=== PATIENT | female | born 1995 | race Caucasian/White ===

== ENCOUNTER → 2023-02-02 10:25 | Outpatient (BNVA) | payer MEDICAID, SELFPAY | PROVIDERS: Visit Provider Nurse Practitioner Family | DX: R50.9 Fever, unspecified (principal); U07.1 COVID-19; B34.9 Viral infection, unspecified | CPT/HCPCS: 87426 ==

== ENCOUNTER 2023-07-24 11:02 | Emergency (ER) | payer MEDICAID, SELFPAY ==
[2023-07-24 11:13] VITALS: BP 128/84; PULSE 121; RESP 20; TEMP 36.7; O2SAT 92; BMI 23.3
--- NOTE | 2023-07-24 12:24 | PC.PHAR ---
pt states she takes care of her own medications-pt states not taking anything otc-pt states she stop taking her venlafaxine 2 weeks ago ext shows last filled 06/26/23 30d/s
[2023-07-24 12:34] VITALS: BP 131/93; PULSE 113; O2SAT 97
[2023-07-24] MEDS: sodium chloride 0.9% 1,000 ML 999 ML IV (12:40)
--- NOTE | 2023-07-24 12:45 | ED_ITS ---
HPI - General Adult General: Chief complaint: General Medical Stated complaint: medication withdrawal Time Seen by Provider: 07/24/23 12:20 Source: patient Mode of arrival: ambulatory History of Present Illness: 28-year-old female presents emergency room she feels she is withdrawing from venlafaxine she was on 37 and half milligrams had side effects or psychiatrist advised her to stop it. She has not taken any in 2 weeks he says she has been nauseous dizzy lightheaded has had several episodes of vomiting she had googled venlafaxine and found that all of the symptoms she is having could be attributed to her stopping the medication. She does use medical marijuana on a daily basis as well. Patient reports she has had a couple episodes of mildly blood-streaked vomitus. Onset (ago): day(s) Severity: mild Relieving factors: none Exacerbating factors: none Associated symptoms: Deny chest pain, confusion, cough, diaphoresis, decreased appetite, dyspnea, fevers/chills, headache(s), malaise, nausea, rash, palpitations, seizures, short of breath, syncope, vomiting or weakness Review of Systems Const: Denies: malaise or diaphoresis ENMT: Denies: throat pain, ear or mastoid pain, nasal discharge or nasal congestion Card: Denies: chest pain, palpitations or syncope Resp: Denies: dyspnea GI: Denies: nausea or vomiting : Denies: flank pain, difficulty voiding, dysuria, urinary frequency or urinary urgency Skin/Breast: Denies: rash Neuro: Denies: headache(s) or confusion PFS ED PFSH: Medical History Psychiatric care Physical Exam Const: GENERAL APPEARANCE: cooperative and comfortable ORIENTATION/CONSCIOUSNESS: Yes awake, Yes oriented to person, Yes oriented to place and Yes oriented to time HENMT: COMMON NORMALS: normocephalic, atraumatic and hearing grossly normal bilaterally HEAD & SCALP: normocephalic and atraumatic Resp: COMMON NORMALS: normal respiratory effort, No retractions, No use of accessory muscles and clear to auscultation bilaterally AUSCULTATION: clear to auscultation bilaterally Cardio: COMMON NORMALS: regular rate, regular rhythm and No murmurs present ( Cardio) RATE: regular rate RHYTHM: regular rhythm GI: COMMON NORMALS: Soft to palpation and No hepatosplenomegaly present AUSCULTATION: Yes normoactive bowel sounds PALPATION: Yes Soft to palpation, No Tenderness to palpation present (GI), No Guarding due to palpation present (GI) and Yes No hepatosplenomegaly present Extremity: COMMON NORMALS: normal to inspection, capillary refill normal, no clubbing, cyanosis or edema, no calf tenderness and no pedal edema Neuro: SENSORIUM/ORIENTATION: Yes oriented to person, Yes oriented to place and Yes oriented to time Skin: COMMON NORMALS: no rashes or lesions noted GENERAL SKIN EXAM: no rashes or lesions noted Course Vital Signs: Vital signs: Vital Signs Temperature 98.0 F 07/24/23 11:13 Pulse Rate 86 07/24/23 15:46 Respiratory Rate 20 H 07/24/23 11:13 Blood Pressure 139/86 07/24/23 15:46 Pulse Oximetry 99 07/24/23 15:46 Oxygen Delivery Me thod Room Air 07/24/23 12:34 [facility] - General Adult Medical Decision Making Elevated transaminases T. bili is normal alk phos is also elevated. Acute hepatitis panel negative. Gallbladder ultrasound done as well no significant findings. Normal COVID-negative patient does have an incidental cystitis for which we will start oral antibiotics. Recommend clear liquid diet advance as tolerated follow-up for repeat liver enzymes in the next few weeks return to primary care doctor has any worsening symptoms. The level of venlafaxine she was on the timeframe when she has been off of it preclude this as a cause at this time. Gallbladder normal common bile duct mild hepatomegaly otherwise unremarkable. This could be from a simple gastroenteritis. Lab Data 07/24/23 12:39 07/24/23 12:39 Laboratory Results WBC 19.81 10^3/uL (3.29-11.43) H 07/24/23 12:39 RBC 4.98 10^6/uL (3.85-5.65) 07/24/23 12:39 Hgb 14.90 g/dL (11.27-16.99) 07/24/23 12:39 Hct 44.4 % (36-47) 07/24/23 12:39 MCV 89.2 fl (85-98) 07/24/23 12:39 MCH 29.9 pg (27-33) 07/24/23 12:39 MCHC 33.6 g/dL (30-55) 07/24/23 12:39 RDW 13.2 % (12.1-15.1) 07/24/23 12:39 Plt Count 229 10^3/cmm (157-399) 07/24/23 12:39 MPV 9.3 fL (7.4-10.4) 07/24/23 12:39 Neut % (Auto) 88.8 % 07/24/23 12:39 Lymph % (Auto) 3.4 % 07/24/23 12:39 [place] % (Auto) 6.8 % 07/24/23 12:39 Eos % (Auto) 0.2 % 07/24/23 12:39 Baso % (Auto) 0.3 % 07/24/23 12:39 Neut # (Auto) 17.60 10^3/uL (1.8-7.7) H 07/24/23 12:39 Lymph # (Auto) 0.7 10^3/uL (0.8-4.8) L 07/24/23 12:39 [place] # (Auto) 1.4 10^3/uL (0.2-0.9) H 07/24/23 12:39 Eos # (Auto) 0.0 10^3/uL (0.0-0.8) 07/24/23 12:39 Baso # (Auto) 0.1 10^3/uL (0.0-0.1) 07/24/23 12:39 Nucleated RBC % (auto) 0 % 07/24/23 12:39 Nucleated RBCs # 0.0 /100WBC 07/24/23 12:39 Sodium 132 mmol/L (136-145) L 07/24/23 12:39 Potassium 4.0 mmol/L (3.5-5.1) 07/24/23 12:39 Chloride 97 mmol/L (98-107) L 07/24/23 12:39 Carbon Dioxide 22 mmol/L (22-29) 07/24/23 12:39 Anion Gap 17.0 (5-19) 07/24/23 12:39 BUN 8 mg/dL (6-20) 07/24/23 12:39 Creatinine 0.5 mg/dL (0.5-0.9) 07/24/23 12:39 GFR Calculation 148.0 mL/min (90-130) H 07/24/23 12:39 Glucose 99 mg/dL (65-115) 07/24/23 12:39 Calculated Osmolality 272 mOsm/kg (285-295) L 07/24/23 12:39 Calcium 9.6 mg/dL (8.5-10.5) 07/24/23 12:39 Total Bilirubin 1.1 mg/dL (0.15-1.2) 07/24/23 12:39 AST 157 U/L (0-32) H 07/24/23 12:39 ALT 600 U/L (0-33) H 07/24/23 12:39 Alkaline Phosphatase 167 U/L (35-105) H 07/24/23 12:39 Total Protein 8.1 g/dL (6.6-8.7) 07/24/23 12:39 Albumin 4.3 g/dL (3.5-5.2) 07/24/23 12:39 Globulin 3.8 g/dL (1.3-4.6) 07/24/23 12:39 Lipase 24 U/L (13-60) 07/24/23 12:39 HCG, Qual Negative (Negative) 07/24/23 12:39 Urine Color Yellow (Yellow) 07/24/23 13:26 Urine Appearance Cloudy (CLEAR) A 07/24/23 13:26 Urine pH 8 (5-7) H 07/24/23 13:26 Ur Specific [place] 1.005 (1.005-1.030) 07/24/23 13:26 Urine Protein Neg (Negative) 07/24/23 13:26 Urine Glucose (UA) Norm (Normal) 07/24/23 13:26 Urine Ketones Negative (Negative) 07/24/23 13:26 Urine Blood Neg (Negative) 07/24/23 13:26 Urine Nitrate Positive (Negative) H 07/24/23 13:26 Urine Bilirubin Neg (Negative) 07/24/23 13:26 Prot Sulfosalicylic Acd Negative (Negative) 07/24/23 13:26 Urine Urobilinogen Norm mg/dL (Negative) 07/24/23 13:26 Ur Leukocyte Esterase 2+ (Negative) H 07/24/23 13:26 Urine RBC 0-4 /hpf (0-2) H 07/24/23 13:26 Urine WBC 10-15 /hpf (0-5) H 07/24/23 13:26 Ur Squamous Epith Cells 0-4 /hpf (0-5) H 07/24/23 13:26 Amorphous Sediment Not Reportable 07/24/23 13:26 Urine Bacteria 4+ /hpf (NONE) H 07/24/23 13:26 Hyaline Casts 0-4 /lpf H 07/24/23 13:26 Urine Opiates Screen Negative ng/mL (Negative) 07/24/23 13:26 Ur Barbiturates Screen Negative ng/mL (Negative) 07/24/23 13:26 Ur Phencyclidine Scrn Negative ng/mL (Negative) 07/24/23 13:26 Ur Amphetamines Screen Negative ng/mL (Negative) 07/24/23 13:26 U Benzodiazepines Scrn Negative ng/mL (Negative) 07/24/23 13:26 Urine Cocaine Screen Negative ng/mL (Negative) 07/24/23 13:26 U Marijuana (THC) Screen Positive ng/mL (Negative) H 07/24/23 13:26 Lyme Ab (Western Blot) <0.90 index 07/24/23 15:41 Coronavirus 229E (PCR) Not detected (NOT DETECT) 07/24/23 15:41 Hepatitis A IgM Ab Non-reactive (Nonreactive) 07/24/23 12:39 Hep Bs Antigen Non-reactive (Nonreactive) 07/24/23 12:39 Hep B Core IgM Ab Non-reactive (Nonreactive) 07/24/23 12:39 Hepatitis C Antibody Non-reactive (Nonreactive) 07/24/23 12:39 SARS-CoV-2 (PCR) Not detected (NOT DETECT) 07/24/23 15:41 Discharge Plan Discharge Patient Disposition: Home Clinical Impression: Elevated transaminase measurement, Nausea & vomiting, Cystitis, Anxiety Condition: Stable Prescriptions: New promethazine 25 mg tablet 25 mg PO Q6H PRN (Reason: nausea and vomiting) Qty: 20 0RF omeprazole 40 mg capsule,delayed release(DR/EC) 40 mg PO BID Qty: 60 0RF Macrobid 100 mg capsule 100 mg PO BID 7 Days Qty: 14 0RF Rx Instructions: must administer with a meal/food hydroxyzine HCl 25 mg tablet 25 mg PO Q8H PRN (Reason: anxiety) Qty: 7 0RF No Action venlafaxine 37.5 mg capsule,extended release 24hr See Rx Instructions .ROUTE .COMPLEX Qty: 60 1RF Rx Instructions: Take 1 capsule p.o. every a.m. x 8 days then take 2 capsules p.o. every day if tolerated. Mirena 21 mcg/24 hours (8 yrs) 52 mg Intrauterine Device See Rx Instructions .ROUTE .COMPLEX Rx Instructions: intrauterinely as directed trazodone 50 mg tablet 50 mg PO BEDTIME Discharge Orders: Discharge ED (Routine); Ordered 07/24/23 Ordered By: Alden Ball Referrals: Nely Shay FNP [Primary Care Provider] - Discharge Diet: Usual diet Discharge Activity: Resume usual activity Patient Instructions: Opioid Safety, Pain Management Activity Restrictions/Additional Instructions: You were seen today for complaints of nausea and vomiting. Recommend that he start omeprazole 40 mg twice daily. Also recommend use promethazine as needed clear liquid diet advance as tolerated follow-up with your primary care doctor to recheck your liver enzymes which are significantly elevated. If any worsening or change symptoms return. Coding Level of Care Code ED Hand Collator for Andrea Lindo
[2023-07-24 12:57] LABS: Basophils # 0.1 10^3/uL (0.0-0.1); Basophils % 0.3 %; Eosinophils % 0.2 %; Hematocrit 44.4 % (36-47); Lymphocytes # 0.7 10^3/uL (0.8-4.8); Lymphocytes % 3.4 %; Mean Corpuscular HGB Conc 33.6 g/dL (30-55); Mean Corpuscular Hemoglobin 29.9 pg (27-33); Mean Corpuscular Volume 89.2 fl (85-98); Mean Platelet Volume 9.3 fL (7.4-10.4); Monocytes # 1.4 10^3/uL (0.2-0.9); Monocytes % 6.8 %; Neutrophils % 88.8 %; Nucleated Red Blood Cells % 0 %; Platelet Count 229 10^3/cmm (157-399); Red Blood Count 4.98 10^6/uL (3.85-5.65); Red Cell Distribution Width 13.2 % (12.1-15.1); White Blood Count 19.81 10^3/uL (3.29-11.43)
[2023-07-24 13:20] LABS: Alanine Aminotransferase 600 U/L (0-33); Albumin Level 4.3 g/dL (3.5-5.2); Alkaline Phosphatase 167 U/L (35-105); Aspartate Amino Transferase 157 U/L (0-32); Blood Urea Nitrogen 8 mg/dL (6-20); Calcium 9.6 mg/dL (8.5-10.5); Carbon Dioxide 22 mmol/L (22-29); Chloride 97 mmol/L (98-107); Globulin 3.8 g/dL (1.3-4.6); Glucose 99 mg/dL (65-115); Osmolality Calculated 272 mOsm/kg (285-295); Sodium 132 mmol/L (136-145); Total Bilirubin 1.1 mg/dL (0.15-1.2); Total Protein 8.1 g/dL (6.6-8.7)
[2023-07-24 13:26] LABS: HCG, Serum Qual Negative (Negative)
[2023-07-24 13:35] LABS: Lipase 24 U/L (13-60)
[2023-07-24 13:36] LABS: Urine Appearance Cloudy (CLEAR); Urine Color Yellow (Yellow)
[2023-07-24 13:37] LABS: Add Urine Microscopic? YES; Bilirubin Urine Neg (Negative); Blood Urine Neg (Negative); Glucose Urine UA Norm (Normal); Ketones Urine Negative (Negative); Leukocyte Esterase Urine 2+ (Negative); Nitrate Urine Positive (Negative); Protein Urine Neg (Negative); Specific Gravity, Urine 1.005 (1.005-1.030); Urobilinogen Urine Norm (Negative); pH Urine 8 (5-7)
[2023-07-24 13:38] LABS: Sulfosalicylic Acid Urine Negative (Negative)
[2023-07-24 13:39] LABS: Add Urine Culture? Yes; Bacteria Urine 4+ /hpf; Hyaline Casts Urine 0-4 /lpf; RBC Urine 0-4 /hpf (0-2); Squamous Epithelial Cell Urine 0-4 /hpf (0-5)
[2023-07-24 13:41] LABS: Amphetamines Screen Urine Negative (Negative); Barbiturates Screen Urine Negative (Negative); Benzodiazepines Screen Urine Negative (Negative); Cocaine Screen Urine Negative (Negative); Opiate Screen Urine Negative (Negative); PCP Screen Urine Negative (Negative); THC Screen Urine Positive (Negative)
--- NOTE | 2023-07-24 14:18 | US_ITS ---
WS: [id number] ULTRASOUND ABDOMEN LIMITED CLINICAL INFORMATION: elevated LFTs COMPARISON: None. FINDINGS: Liver Size: Mild hepatomegaly Craniocaudal length: 16.5 cm. Echogenicity: Normal. Surface nodularity: None. Mass (size and location): None. Bile ducts Intrahepatic ducts: Normal. Common bile duct diameter: 0.3 cm. Gallbladder Normal. Gallstones: None. Gallbladder sludge: None. Gallbladder wall thickening: None. Pericholecystic fluid: None. Sonographic Mccoy sign: Absent. Pancreas Normal as visualized. Right kidney: Normal. Hydronephrosis: None. Size: 10.6 cm x 4.6 cm x 4.4 cm. Abdominal aorta and IVC Visualized portions are normal. Ascites: None. IMPRESSION: 1. Normal gallbladder. 2. Mild hepatomegaly. 3. Normal common bile duct.
[2023-07-24 14:50] LABS: Hepatitis A Antibody IgM Non-Reactive (Nonreactive); Hepatitis B Core IgM Non-Reactive (Nonreactive); Hepatitis B Surface Antigen Non-Reactive (Nonreactive); Hepatitis C Virus Antibody Non-Reactive (Nonreactive)
[2023-07-24] MEDS: LORazepam 2 mg Tablet PO (15:37)
[2023-07-24 15:46] VITALS: BP 139/86; PULSE 86; O2SAT 99
[2023-07-24 17:33] LABS: Adenovirus Not Detected (NOT DETECT); Chlamydia Pneumoniae Not Detected (NOT DETECT); Coronavirus 229E,HKU1,NL63,OC4 Not Detected (NOT DETECT); Human Metapneumovirus Not Detected (NOT DETECT); Human Rhinovirus/Enterovirus Not Detected (NOT DETECT); Influenza A Not Detected (NOT DETECT); Influenza A H1 Not Detected (NOT DETECT); Influenza A H1-2009 Not Detected (NOT DETECT); Influenza A H3 Not Detected (NOT DETECT); Influenza B Not Detected (NOT DETECT); Mycoplasma Pneumoniae Not Detected (NOT DETECT); Parainfluenza Virus Type 1 Not Detected (NOT DETECT); Parainfluenza Virus Type 2 Not Detected (NOT DETECT); Parainfluenza Virus Type 3 Not Detected (NOT DETECT); Parainfluenza Virus Type 4 Not Detected (NOT DETECT); Respiratory Syncytial Virus A Not Detected (NOT DETECT); Respiratory Syncytial Virus B Not Detected (NOT DETECT); SARS-COV-2 Not Detected (NOT DETECT)
[2023-07-25 14:30] LABS: Lyme AB Screen <0.90 index
[2023-07-29 17:19] LABS: E. Chaffeensis AB IGG <1:64; E. Chaffeensis AB IGM <1:20
[2023-07-31 17:15] LABS: RMSF IGG NOT DETECTED; RMSF IGM NOT DETECTED
== END 2023-07-24 16:28 | disposition home or self-care (01) ==
PROVIDERS: Emergency Provider Family Medicine; PCP Nurse Practitioner Family
DX: N30.90 Cystitis, unspecified without hematuria (principal); R11.2 Nausea with vomiting, unspecified; F41.9 Anxiety disorder, unspecified; R74.01 Elevation of levels of liver transaminase levels; Z20.822 Contact with and (suspected) exposure to COVID-19
CPT/HCPCS: 36415; 76705; 80053; 80074; 80306; 81001; 83690; 84703; 85025; 86618; 86666; 86757; 87077; 87086; 87186; 87635; 96360; 99284; J7030

== ENCOUNTER → 2023-10-21 10:00 | Outpatient (BNVA) | payer MEDICAID, SELFPAY | PROVIDERS: PCP Nurse Practitioner Family; Visit Provider Nurse Practitioner Women's Health | DX: Z12.4 Encounter for screening for malignant neoplasm of cervix (principal); N73.0 Acute parametritis and pelvic cellulitis; N76.0 Acute vaginitis; B96.89 Other specified bacterial agents as the cause of diseases classified elsewhere | CPT/HCPCS: 87624 ==

== ENCOUNTER → 2023-11-07 11:08 | Outpatient (BNVA) | payer MEDICAID, SELFPAY | PROVIDERS: PCP Nurse Practitioner Family; Visit Provider Nurse Practitioner Women's Health | DX: Z30.430 Encounter for insertion of intrauterine contraceptive device (principal) | CPT/HCPCS: 76830 ==

== ENCOUNTER → 2023-12-18 11:00 | Outpatient (BNVA) | payer MEDICAID, SELFPAY | PROVIDERS: PCP Nurse Practitioner Family; Visit Provider Obstetrics & Gynecology | DX: Z01.818 Encounter for other preprocedural examination (principal); R87.619 Unspecified abnormal cytological findings in specimens from cervix uteri | CPT/HCPCS: 81025; 88305 ==

== ENCOUNTER 2024-01-16 06:28 | Day surgery (SDC) | payer MEDICAID, SELFPAY ==
[2024-01-16] VITALS (9 sets, daily range): BP systolic 105–131; BP diastolic 61–88; PULSE 70–87; RESP 14–18; TEMP 36.2–36.6; O2SAT 94–99; BMI 21.9
--- NOTE | 2024-01-16 00:23 | W.PM.OPSFHP ---
Same Day Surgery H&P Indication for Procedure/HPI DATE OF PROCEDURE: January 16, 2024 CHIEF COMPLAINT/INDICATIONFOR SURGICAL PROCEDURE: abnormal pap PREOP DIAGNOSIS: abnormal pap PLANNED PROCEDURE: Operation Date: 01/16/24 08:10 Proposed Procedures p [LEEP, loop electrosurgical excision procedure [id number], R87.619,Z30.9(Not Applicable) - Saw Villagomez MD s Removal Of Interuterine Device(Not Applicable) - Saw Villagomez MD 28 y.o. A1 With abnormal pap Pap 12 ASCUS, + HPV Now scheduled for LEEP cervical excision Has mirena IUD in place since March 2019 May need to replace mirena IUD with a new mirena IUD Medications/Allergies* Home Medications Medication Instructions Recorded Confirmed Type levonorgestrel 21 mcg/24 hours (8 See Rx Instructions .Route .COMPLEX 07/24/23 01/15/24 History yrs) 52 mg intrauterine device (Mirena) Allergies/Adverse Reactions Allergy/AdvReac Type Severity Reaction Status Date / Time doxycycline Allergy facial Verified 12/25/23 12:00 swelling kiwi Allergy throat Uncoded 12/25/23 12:00 swelling Pertinent History/Comorbid Conditions* Medical History (Updated 12/08/23 @ 22:58 by Saw Villagomez MD) Psychiatric care Family History (Updated 11/13/23 @ 08:11 by Vicki Spann CMA) Denies family history of Ovarian cancer Diabetes Heart disease Breast cancer Hypertension Uterine cancer Thyroid disease Stroke Pertinent Exam Findings alert, oriented x 3, clear to auscultation bilaterally and regular rate & rhythm Recommendations Surgery/Procedure today Coding Level of Care Code Acute Code for Chg Fwd Time Spent (min) 20
[2024-01-16 06:42] LABS: OR HCG Qualitative Urine Negative (Negative)
[2024-01-16] MEDS: sodium chloride 0.9% 1,000 ML 30 ML IV (07:18)
--- NOTE | 2024-01-16 07:41 | ANES.PREANE2 ---
Pre-Anesthetic Assessment Height/Weight: Height 1.7 m Weight 63.503 kg Temp Pulse Resp BP Pulse Ox O2 Del Method 97.1 F L 86 16 129/84 97 Room Air 01/16/24 07:05 01/16/24 07:05 01/16/24 07:05 01/16/24 07:05 01/16/24 07:05 01/16/24 07:05 Preop Diagnosis: abnormal pap Operation Date: 01/16/24 08:10 Proposed Procedures p [LEEP, loop electrosurgical excision procedure [id number], R87.619,Z30.9(Not Applicable) - Saw Villagomez MD s Removal Of Interuterine Device(Not Applicable) - Saw Villagomez MD Familial anesthetic complications: none Was Beta Severo taken within 24 hours: N/A Was Clonidine taken within 24 hours: N/A Last intake: Intake Last Liquid Date 01/16/24 Last Liquid Time 06:00 Last Solid Date 01/15/24 Last Solid Time 19:30 Social No alcohol and No tobacco Exam alert, oriented x 3, clear to auscultation bilaterally and regular rate & rhythm Airway Submandibular: within normal limits Cervical ROM: within normal limits Mallampati: Class I Dentition: false GI Gastroesophageal Reflux Disease Anesthetic Plan ASA status: 2 Anesthesia: General Medications/Allergies Home Medications Medication Instructions Recorded Confirmed Last Taken Type levonorgestrel 21 mcg/24 hours (8 See Rx Instructions .Route .COMPLEX 07/24/23 01/15/24 01/15/24 History yrs) 52 mg intrauterine device (Mirena) omeprazole 40 mg capsule,delayed 40 mg PO BID #60 caps 07/24/23 01/15/24 01/15/24 Rx release Allergies Allergy/AdvReac Type Severity Reaction Status Date / Time doxycycline Allergy facial Verified 01/16/24 06:57 swelling kiwi Allergy throat Uncoded 01/16/24 06:57 swelling Current Medications Generic Name Dose Route Start Last Admin Trade Name Freq PRN Reason Stop Dose Admin Sodium Chloride 1,000 mls @ 30 mls/hr 01/16/24 07:00 01/16/24 07:18 Sodium Chloride 0.9% IV 01/17/24 06:59 30 mls/hr .Q24H RABIA Administration PFSH Anesthesia Medical History Psychiatric care Family History Denies family history of Ovarian cancer Diabetes Heart disease Breast cancer Hypertension Uterine cancer Thyroid disease Stroke Female Reproductive History Date of last menstrual period: 01/07/24 Data Anesthesia Cardiac Studies: No Data to Display
--- NOTE | 2024-01-16 07:56 | W.PM.OPSUD ---
Surgery/Procedure H&P Update DATE OF PROCEDURE: January 16, 2024 DATE H&P PERFORMED: 01/16/24 H&P UPDATE INFORMATION: I have reviewed H&P completed within last 30 days, I have examined patient prior to procedure and No changes to prior documentation PREOP DIAGNOSIS: abnormal pap PLANNED PROCEDURE: Operation Date: 01/16/24 08:10 Proposed Procedures p [LEEP, loop electrosurgical excision procedure [id number], R87.619,Z30.9(Not Applicable) - Saw Villagomez MD s Removal Of Interuterine Device(Not Applicable) - Saw Villagomez MD
[2024-01-16] MEDS: vasopressin 20 unit/mL INJ 18 UNIT INJECTION (09:06)
--- NOTE | 2024-01-16 10:50 | PM.OP ---
Operative Report Date of procedure: January 16, 2024 Pre-op diagnosis: abnormal pap Post-op diagnosis: same Procedure done: Electrosurgical loop excision of the cervix Implants: none Specimens removed/disposition: loop excision of cervix Surgeon: Saw Villagomez MD Anesthesia: MAC Estimated blood loss (mL): 5 Complications: 2-3 mm superficial cautery of left vaginal mucosa Condition: stable Disposition: PACU Brief History: 28 y.o. A1 With abnormal pap Pap 12-4-23 ASCUS, + HPV Now scheduled for LEEP cervical excision Procedure: Informed consent signed The patient was taken to the operating room and placed supine on the table. MAC anesthesia was induced. The patient was placed in dorsolithotomy position. The patient was prepped and draped in the usual sterile fashion. A bivalve speculum was placed in the vagina. The anterior lip of the cervix was grasped with a single toothed tenaculum. The cervix was then infiltrated at the cervicovaginal junction with 20 U of vasopressin diluted in 10 cc Normal Saline to decrease bleeding. The IUD string present was protected using a small plastic sheet. Electrosurgical loop excision of the cervix was done to a depth of approximately 5 mm. A small 2-3 mm area of superficial vaginal mucosa on the left vagina was inadvertently cauterized. Excellent hemostasis was noted. All instruments were then removed. The patient was placed supine, awakened, and taken to the recovery room. Postoperative condition: stable EBL: less than 5 cc Complications: 2-3 mm superficial cautery of left vaginal mucosa Sponge and instrument counts were correct x two
--- NOTE | 2024-01-16 14:18 | ANE.PACU2 ---
Inpatient post-anesthesia follow up: Airway intact: Yes Vital signs: Temperature 97.2 F Pulse Rate 82 Respiratory Rate 16 Blood Pressure 121/82 Pulse Oximetry 99 Oxygen Delivery Me thod Room Air Oxygen Flow Rate Fraction of Inspir ed Oxygen Hydration adequate: Yes Nausea and vomiting: No Pain level: 2 Mental status: Baseline
== END 2024-01-16 10:20 | disposition home or self-care (01) ==
PROVIDERS: Student in an Organized Health Care Education/Training Program; PCP Nurse Practitioner Family; Visit Provider Obstetrics & Gynecology
PROC: 0UBC7ZZ Excision of Cervix, Via Natural or Artificial Opening (ICD-10-PCS; CPT 57522; principal; 2024-01-16 08:00)
DX: N87.1 Moderate cervical dysplasia (principal); N72 Inflammatory disease of cervix uteri
CPT/HCPCS: 57460; 81025; 84703; 88305; 88307; J1100; J2405; J2704; J3010; J3490; J7030

== ENCOUNTER 2024-01-22 20:09 | Emergency (ER) | payer MEDICAID, SELFPAY ==
[2024-01-22 20:10] VITALS: BP 134/90; PULSE 80; RESP 18; TEMP 36.9; O2SAT 97; BMI 20.3
--- NOTE | 2024-01-22 20:21 | ED_ITS ---
HPI - Female Genitourinary 2 General: Chief complaint: Urogenital-Female Stated complaint: bleeding Time Seen by Provider: 01/22/24 20:15 Source: patient and EMS Mode of arrival: EMS Limitations: no limitations History of Present Illness: 28-year-old female who had a LEEP proced ure done by OB last week states she had some bleeding since then then seen in the office yesterday states she has had some worsening bleeding today some abdominal cramping denies any lightheadedness or vomiting. Associated symptoms: Reports abdominal pain; Deny headache(s) or nausea Date of Last Menstrual Period: 01/06/24 Review of Systems 2 Const: Denies: fever(s), chills, body aches or change in appetite ENMT: Denies: throat pain or dental pain Card: Denies: chest pain Resp: Denies: dyspnea GI: Reports: abdominal pain; Denies: nausea, vomiting or diarrhea : Reports: vaginal bleeding; Denies: dysuria Musc: Denies: neck pain or back pain Skin/Breast: Denies: rash Neuro: Denies: headache(s) PFSH ED 2 PFSH: Medical History Psychiatric care Family History Denies family history of Ovarian cancer Diabetes Heart disease Breast cancer Hypertension Uterine cancer Thyroid disease Stroke Female Reproductive History: Date of last menstrual period: 01/06/24 Physical Exam 2 Const: COMMON NORMALS: no acute distress, patient oriented x3 and healthy appearing HENMT: COMMON NORMALS: normocephalic and atraumatic HEAD & SCALP: n ormocephalic and atraumatic Eye: COMMON NORMALS: Equal, round and reactive pupils present and EOMs intact bilaterally PUPIL: Yes Equal, round and reactive pupils present Neck/C-Spine: COMMON NORMALS: full ROM and supple Chest: COMMONS NORMALS: normal inspection of the chest Resp: COMMON NORMALS: normal respiratory effort Cardio: COMMON NORMALS: regular rate, regular rhythm and No murmurs present (Cardio) RATE: regular rate RHYTHM: regular rhythm : OTHER: Small amount of vaginal bleeding no large amount of vaginal bleeding at this time Extremity: COMMON NORMALS: normal to inspection and full ROM Neuro: COMMON NORMALS: patient oriented x3, moves all extremities and no focal motor deficits Psych: COMMON NORMALS: mental status grossly normal, Normal thought process present and cooperative THOUGHT PROCESS: Normal thought process present Skin: COMMON NORMALS: no rashes or lesions noted and no wounds GENERAL SKIN EXAM: no rashes or lesions noted Course 2 Vital Signs: Vital signs: Vital Signs Temperature 98.5 F 01/22/24 20:10 Pulse Rate 75 01/22/24 20:52 Respiratory Rate 18 01/22/24 20:10 Blood Pressure 134/90 01/22/24 20:52 Pulse Oximetry 98 01/22/24 20:52 Oxygen Delivery Me thod Room Air 01/22/24 20:10 MDM - Female Medical Decision Making Patient presents for vaginal bleeding after LEEP procedure her vaginal exam here shows minor bleeding no heavy bleeding her hemoglobin is normal I did speak to her OB Dr. Villagomez who is going to see her in the office tomorrow she stable for discharge Medical Records I reviewed the patient's medical records. Lab Data I reviewed the patient's lab results. 01/22/24 20:21 01/22/24 20:21 Laboratory Results WBC 6.61 10^3/uL (3.29-11.43) 01/22/24 20:21 RBC 4.95 10^6/uL (3.85-5.65) 01/22/24 20:21 Hgb 15.80 g/dL (11.27-16.99) 01/22/24 20:21 Hct 44.7 % (36-47) 01/22/24 20:21 MCV 90.3 fl (85-98) 01/22/24 20:21 MCH 31.9 pg (27-33) 01/22/24 20:21 MCHC 35.3 g/dL (30-55) 01/22/24 20:21 RDW 12.7 % (12.1-15.1) 01/22/24 20:21 Plt Count 171 10^3/cmm (157-399) 01/22/24 20:21 MPV 9.9 fL (7.4-10.4) 01/22/24 20:21 Neut % (Auto) 50.8 % 01/22/24 20:21 Lymph % (Auto) 35.1 % 01/22/24 20:21 [place] % (Auto) 8.8 % 01/22/24 20:21 Eos % (Auto) 4.2 % 01/22/24 20:21 Baso % (Auto) 0.8 % 01/22/24 20:21 Neut # (Auto) 3.36 10^3/uL (1.8-7.7) 01/22/24 20:21 Lymph # (Auto) 2.3 10^3/uL (0.8-4.8) 01/22/24 20:21 [place] # (Auto) 0.6 10^3/uL (0.2-0.9) 01/22/24 20:21 Eos # (Auto) 0.3 10^3/uL (0.0-0.8) 01/22/24 20:21 Baso # (Auto) 0.1 10^3/uL (0.0-0.1) 01/22/24 20:21 Nucleated RBC % (auto) 0 % 01/22/24 20:21 Nucleated RBCs # 0.0 /100WBC 01/22/24 20:21 Sodium 139 mmol/L (136-145) 01/22/24 20:21 Potassium 4.0 mmol/L (3.5-5.1) 01/22/24 20:21 Chloride 105 mmol/L (98-107) 01/22/24 20:21 Carbon Dioxide 24 mmol/L (22-29) 01/22/24 20:21 Anion Gap 14.0 (5-19) 01/22/24 20:21 BUN 15 mg/dL (6-20) 01/22/24 20:21 Creatinine 0.5 mg/dL (0.5-0.9) 01/22/24 20:21 GFR Calculation 148.0 mL/min (90-130) H 01/22/24 20:21 Glucose 102 mg/dL (65-115) 01/22/24 20:21 Calculated Osmolality 289 mOsm/kg (285-295) 01/22/24 20:21 Calcium 9.5 mg/dL (8.5-10.5) 01/22/24 20:21 No radiology studies performed this visit Discharge Plan Discharge Patient Disposition: Home Clinical Impression: Vaginal bleeding Condition: Stable Prescriptions: No Action Mirena 21 mcg/24 hours (8 yrs) 52 mg Intrauterine Device See Rx Instructions .ROUTE .COMPLEX Rx Instructions: intrauterinely as directed omeprazole 40 mg capsule,delayed release(DR/EC) 40 mg PO BID Qty: 60 0RF Discharge Orders: Discharge ED (Routine); Ordered 01/22/24 Ordered By: Emmett Pool Referrals: Saw Villagomez MD [Physician] - 1-3 days Nely Shay FNP [Referring] - Discharge Diet: Advance as tolerated Discharge Activity: Resume usual activity Patient Instructions: Loop Electrosurgical Excision Procedure (DC) Coding Level of Care Code ED Sand Technician for Andrea Lindo
[2024-01-22 20:26] LABS: Basophils # 0.1 10^3/uL (0.0-0.1); Basophils % 0.8 %; Eosinophils # 0.3 10^3/uL (0.0-0.8); Eosinophils % 4.2 %; Hematocrit 44.7 % (36-47); Lymphocytes # 2.3 10^3/uL (0.8-4.8); Lymphocytes % 35.1 %; Mean Corpuscular HGB Conc 35.3 g/dL (30-55); Mean Corpuscular Hemoglobin 31.9 pg (27-33); Mean Corpuscular Volume 90.3 fl (85-98); Mean Platelet Volume 9.9 fL (7.4-10.4); Monocytes # 0.6 10^3/uL (0.2-0.9); Monocytes % 8.8 %; Neutrophils # 3.36 10^3/uL (1.8-7.7); Neutrophils % 50.8 %; Nucleated Red Blood Cells % 0 %; Platelet Count 171 10^3/cmm (157-399); Red Blood Count 4.95 10^6/uL (3.85-5.65); Red Cell Distribution Width 12.7 % (12.1-15.1); White Blood Count 6.61 10^3/uL (3.29-11.43)
[2024-01-22 20:43] LABS: Blood Urea Nitrogen 15 mg/dL (6-20); Calcium 9.5 mg/dL (8.5-10.5); Carbon Dioxide 24 mmol/L (22-29); Chloride 105 mmol/L (98-107); Creatinine Clr Calc Pharmacy 161.5422; Glucose 102 mg/dL (65-115); Osmolality Calculated 289 mOsm/kg (285-295); Sodium 139 mmol/L (136-145)
[2024-01-22 20:52] VITALS: BP 134/90; PULSE 75; O2SAT 98
[2024-01-22 20:53] VITALS: PULSE 74; RESP 16; O2SAT 98
== END 2024-01-22 21:06 | disposition home or self-care (01) ==
PROVIDERS: Emergency Provider Emergency Medicine; PCP Family Medicine
DX: N93.9 Abnormal uterine and vaginal bleeding, unspecified (principal)
CPT/HCPCS: 80048; 85025; 99283; E0352

== ENCOUNTER 2024-03-21 21:33 | Emergency (ER) | payer MEDICAID, SELFPAY ==
[2024-03-21 21:35] VITALS: BP 134/74; PULSE 74; TEMP 36.6; O2SAT 100; BMI 20.7
--- NOTE | 2024-03-21 21:52 | W.ED.PSYCHS ---
Documented by User: BENJAMÍN Camara 03/21/24 22:49 HPI - Psych General: Chief Complaint: Psychiatric Symptoms Stated Complaint: AMS Time Seen by Provider: 03/21/24 21:45 History of Present Illness: 28-year-old female comes in today with confusion. Patient states that she is upset about losing her job and just is having a hard time understanding things at this time. Patient thinks that she might be having a seizure. Patient reports a history of polycythemia and seizure episodes. Patient denies being suicidal or homicidal. Patient does endorse use of marijuana. Review of Systems General: Reports: 10 or more systems reviewed and unremarkable except in HPI and below Neuro: Reports: confusion PFSH ED PFSH: Medical History Psychiatric care Family History Denies family history of Ovarian cancer Diabetes Heart disease Breast cancer Hypertension Uterine cancer Thyroid disease Stroke Physical Exam Const: COMMON NORMALS: alert HENMT: COMMON NORMALS: normocephalic HEAD & SCALP: normocephalic Neck/C-Spine: COMMON NORMALS: full ROM Chest: COMMONS NORMALS: normal inspection of the chest Resp: COMMON NORMALS: normal respiratory effort and clear to auscultation bilaterally AUSCULTATION: clear to auscultation bilaterally Cardio: COMMON NORMALS: regular rate and regular rhythm RATE: regular rate RHYTHM: regular rhythm GI: COMMON NORMALS: Soft to palpation and non-tender PALPATION: Yes Soft to palpation Back/Pelvis: COMMON NORMALS: thoracic and lumbar spine normal to inspection Extremity: COMMON NORMALS: full ROM Neuro: SENSORIUM/ORIENTATION: Yes alert Skin: COMMON NORMALS: turgor normal GENERAL SKIN EXAM: turgor normal Course Vital Signs: Vital signs: Vital Signs Temperature 98 F 03/21/24 21:35 Pulse Rate 74 03/21/24 21:35 Blood Pressure 134/74 03/21/24 21:35 Pulse Oximetry 100 03/21/24 21:35 MDM - Psych Medical Decision Making Patient presents today with complaints of confusion. Patient had lost her job today and was confused. Patient is alert responding appropriate to questions at this time. Patient denies homicidal or suicidal thoughts. Differential diagnosis includes acute psychosis, adjustment disorder, substance use disorder, acute anxiety. Patient was able to calm down and expressed that most likely she was just really upset about losing her job. Patient appears nontoxic. Patient is alert and oriented. Patient is able to state the the day and was well oriented. Patient was discharged to male significant other for a ride home. No radiology studies performed this visit Discharge Plan Discharge Patient Disposition: Home Clinical Impression: Acute anxiety Condition: Stable Prescriptions: No Action Mirena 21 mcg/24 hours (8 yrs) 52 mg Intrauterine Device See Rx Instructions .ROUTE .COMPLEX Rx Instructions: intrauterinely as directed omeprazole 40 mg capsule,delayed release(DR/EC) 40 mg PO BID Qty: 60 0RF Discharge Orders: Discharge ED (Routine); Ordered 03/21/24 Ordered By: Gearrd Eaton Referrals: Alex Syed DO [Primary Care Provider] - Discharge Diet: Usual diet Discharge Activity: Increase activity as tolerated Patient Instructions: Anxiety (ED) Activity Restrictions/Additional Instructions: Home and rest. Drink plenty of fluids. Follow-up with primary care regarding anxiety and options of treatment. Return to ED for worsening symptoms or new concerns. Coding Level of Care Code ED Gate Cutter for Chg Fwd Documented by User: Allan Ogden DO 03/22/24 16:24 HPI - Psych General: Chief Complaint: Psychiatric Symptoms Stated Complaint: AMS Time Seen by Provider: 03/21/24 21:45 [facility] ED PFSH: Medical History Psychiatric care Family History Denies family history of Ovarian cancer Diabetes Heart disease Breast cancer Hypertension Uterine cancer Thyroid disease Stroke Course Vital Signs: Vital signs: Vital Signs Temperature 98 F 03/21/24 21:35 Pulse Rate 74 03/21/24 21:35 Blood Pressure 134/74 03/21/24 21:35 Pulse Oximetry 100 03/21/24 21:35 MDM - Psych Medical Decision Making Patient presents today with complaints of confusion. Patient had lost her job today and was confused. Patient is alert responding appropriate to questions at this time. Patient denies homicidal or suicidal thoughts. Differential diagnosis includes acute psychosis, adjustment disorder, substance use disorder, acute anxiety. Patient was able to calm down and expressed that most likely she was just really upset about losing her job. Patient appears nontoxic. Patient is alert and oriented. Patient is able to state the the day and was well oriented. Patient was discharged to male significant other for a ride home. This patient was originally seen by BENJAMÍN Paige. I agree with his history, evaluation, and treatment. Discharge Plan Discharge Patient Disposition: Home Clinical Impression: Acute anxiety Condition: Stable Prescriptions: No Action Mirena 21 mcg/24 hours (8 yrs) 52 mg Intrauterine Device See Rx Instructions .ROUTE .COMPLEX Rx Instructions: intrauterinely as directed omeprazole 40 mg capsule,delayed release(DR/EC) 40 mg PO BID Qty: 60 0RF Discharge Orders: Discharge ED (Routine); Ordered 03/21/24 Ordered By: Gerard Eaton Referrals: Alex Syed DO [Primary Care Provider] - Discharge Diet: Usual diet Discharge Activity: Increase activity as tolerated Patient Instructions: Anxiety (ED) Activity Restrictions/Additional Instructions: Home and rest. Drink plenty of fluids. Follow-up with primary care regarding anxiety and options of treatment. Return to ED for worsening symptoms or new concerns. Coding Level of Care Code ED Gate Cutter for Andrea Lindo
--- NOTE | 2024-03-21 23:00 | PC.NURSE ---
Pt. called boyfriend and told him that she was here in the ER and that she wanted to leave. Pt. boyfriend called the ER and states that he would be here in 15 minutes and demanded that she be discharged or he would sign her out either way. I spoke with provider and he states that the patient is free to leave due to denying SI/HI.
== END 2024-03-21 23:03 | disposition home or self-care (01) ==
PROVIDERS: Emergency Provider Nurse Practitioner Family; PCP Family Medicine
DX: F41.9 Anxiety disorder, unspecified (principal)
CPT/HCPCS: 99281

== ENCOUNTER → 2024-08-19 10:09 | Outpatient (BNVA) | payer SELFPAY | PROVIDERS: PCP Family Medicine; Visit Provider Obstetrics & Gynecology | DX: Z01.419 Encounter for gynecological examination (general) (routine) without abnormal findings (principal); N92.6 Irregular menstruation, unspecified | CPT/HCPCS: 81025; 87624 ==

== ENCOUNTER → 2024-09-30 09:50 | Outpatient (BNVA) | payer MEDICAID, SELFPAY | PROVIDERS: PCP Family Medicine; Visit Provider Nurse Practitioner Women's Health | DX: N91.2 Amenorrhea, unspecified (principal) | CPT/HCPCS: 83001; 83002; 83036; 83520; 84146; 84402; 84403; 84443; 84702 ==

== ENCOUNTER → 2024-10-19 08:58 | Outpatient (BNVA) | payer MEDICAID, SELFPAY | PROVIDERS: PCP Family Medicine; Visit Provider Nurse Practitioner Women's Health | DX: N92.6 Irregular menstruation, unspecified (principal); N83.201 Unspecified ovarian cyst, right side | CPT/HCPCS: 76830 ==

== ENCOUNTER → 2024-12-09 10:51 | Outpatient (BNVA) | payer MEDICAID, SELFPAY | PROVIDERS: PCP Family Medicine; Visit Provider Internal Medicine | DX: E03.9 Hypothyroidism, unspecified (principal) | CPT/HCPCS: 36415; 84439; 84443; 86376; 86800 ==

== ENCOUNTER → 2025-03-11 10:28 | Outpatient (BNVA) | payer OTHER, SELFPAY | PROVIDERS: PCP Family Medicine | DX: F33.9 Major depressive disorder, recurrent, unspecified (principal) | CPT/HCPCS: 80053; 80061; 83036; 85025 ==

== ENCOUNTER → 2025-03-29 13:36 | Outpatient (BNVA) | payer MEDICAID, SELFPAY | PROVIDERS: PCP Family Medicine; Visit Provider Nurse Practitioner | DX: O21.0 Mild hyperemesis gravidarum (principal); R11.0 Nausea | CPT/HCPCS: 81025; 84702 ==

== ENCOUNTER → 2025-04-06 08:54 | Outpatient (BNVA) | payer MEDICAID, SELFPAY | PROVIDERS: PCP Family Medicine; Referring Provider Internal Medicine; Visit Provider Internal Medicine | DX: E03.9 Hypothyroidism, unspecified (principal) | CPT/HCPCS: 84439; 84443 ==

== ENCOUNTER → 2025-04-29 13:07 | Outpatient (BNVA) | payer MEDICAID, SELFPAY | PROVIDERS: PCP Family Medicine; Visit Provider Nurse Practitioner Women's Health | DX: N91.2 Amenorrhea, unspecified (principal) | CPT/HCPCS: 81025 ==

== ENCOUNTER → 2025-09-01 08:37 | Outpatient (BNVA) | payer MEDICAID, SELFPAY ==
[2025-07-30 10:20] VITALS: BP 116/63; BMI 23.2
== END ==
PROVIDERS: PCP Family Medicine; Visit Provider Nurse Practitioner Women's Health
DX: Z34.90 Encounter for supervision of normal pregnancy, unspecified, unspecified trimester (principal); Z01.419 Encounter for gynecological examination (general) (routine) without abnormal findings; N91.2 Amenorrhea, unspecified
CPT/HCPCS: 80307; 81025; 84439; 84443; 84481; 84702; 86850; 86900

== ENCOUNTER → 2025-09-29 10:52 | Outpatient (BNVA) | payer OTHER, SELFPAY ==
[2025-07-30 10:20] VITALS: BP 116/63; BMI 23.2
== END ==
PROVIDERS: PCP Family Medicine; Visit Provider Nurse Practitioner Women's Health
DX: O03.9 Complete or unspecified spontaneous abortion without complication (principal)
CPT/HCPCS: 84702

== ENCOUNTER → 2025-10-07 08:56 | Outpatient (BNVA) | payer OTHER, SELFPAY ==
[2025-07-30 10:20] VITALS: BP 116/63; BMI 23.2
== END ==
PROVIDERS: PCP Family Medicine; Visit Provider Nurse Practitioner Women's Health
DX: O03.9 Complete or unspecified spontaneous abortion without complication (principal)
CPT/HCPCS: 84702

== ENCOUNTER → 2025-10-29 10:51 | Outpatient (BNVA) | payer MEDICAID, SELFPAY ==
[2025-07-30 10:20] VITALS: BP 116/63; BMI 23.2
== END ==
PROVIDERS: PCP Family Medicine; Visit Provider Nurse Practitioner Women's Health
DX: O03.9 Complete or unspecified spontaneous abortion without complication (principal)
CPT/HCPCS: 84702